=== PATIENT | female | born 1975 | race Caucasian/White ===

== ENCOUNTER 2017-12-10 12:03 | Emergency (ER) | END 2017-12-10 13:21 | disposition home or self-care (01) ==

== ENCOUNTER 2018-10-10 18:31 | Emergency (ER) | payer MEDICAID ==
[~2018-10-10] VITALS: Ht 165.1 cm; Wt 84.5 kg
[~2018-10-10 18:31] MED LIST: DOLU50TA PO; EMTR1TAB11 PO; IBUP-1542 PO; PREN-39 PO; TRAM50TA2 PO
[2018-10-10 18:45] VITALS: BP 115/61; PULSE 67; RESP 18; Ht 165.1 cm; Wt 84.5 kg
[2018-10-10] MEDS ORDERED: KETOROLAC 30 MG INJ IM STA (19:12)
[2018-10-10] MEDS ORDERED: ALBU8.5H8 INH (19:16)
[2018-10-10] MEDS ORDERED: BENZ-6 PO (19:16)
[2018-10-10] MEDS ORDERED: IBUP-1542 PO (19:16)
[2018-10-10] MEDS ORDERED: AZIT500T3 PO (19:16)
--- NOTE | 2018-10-10 19:29 | ERD ---
ER Documentation Chief Complaint Chief Complaint COUGH, CHEST CONGESTION X 1 WEEK HPI This is a 43-year-old otherwise healthy woman presenting with cough, congestion, fever x1 week. She denies recent travel or antibiotic use and denies sick contacts. She states the cough is dry nonproductive. She denies chest pain or shortness of breath, no calf or leg swelling, no headache or blurry vision, no vomiting or diarrhea, no dysuria. ROS All systems reviewed and are negative except as per history of present illness. Medications Home Meds Active Scripts Ibuprofen* (Motrin*) 600 Mg Tab, 600 MG PO Q8 PRN for PAIN AND/OR INFLAMMATION, #30 TAB Prov:IRENE BUNDY MD 10/10/18 Benzonatate* (Tessalon Perle*) 100 Mg Capsule, 100 MG PO Q8H PRN for COUGH, #12 CAP Prov:IRENE BUNDY MD 10/10/18 Albuterol Sulfate* (Proair HFA*) 8.5 Gm Hfa.aer.ad, 2 PUFF INH Q6H PRN for WHEEZING AND SOB, #1 INHALER Prov:IRENE BUNDY MD 10/10/18 Azithromycin* (Zithromax*) 500 Mg Tablet, 500 MG PO DAILY for 5 Days, TAB Prov:IRENE BUNDY MD 10/10/18 Emtricitabine-Tenofovir* (Truvada*) 200-300 Mg Tablet, 1 TAB PO DAILY for 7 Days, #30 TAB Prov:JAJA GUERRERO PA-C 12/10/17 Dolutegravir Sodium (Tivicay) 50 Mg Tablet, 50 MG PO DAILY, #30 TAB Prov:JAJA GUERRERO PA-C 12/10/17 Ibuprofen* (Motrin*) 600 Mg Tab, 600 MG PO Q6, #30 TAB Prov:PROJAJA ESPINOZA PA-C 12/10/17 Ibuprofen* (Motrin*) 600 Mg Tab, 600 MG PO Q6, #30 TAB Prov:JAJA GUERRERO PA-C 01/12/16 Tramadol HCl (Tramadol HCl) 50 Mg Tablet, 50 MG PO Q4 PRN for PAIN, #20 TAB Prov:JAJA GUERRERO PA-C 01/12/16 Reported Medications Vits W-Ca,Fe,Fa(<1MG) ( Vitamins) 1 Tab Tablet, 1 TAB PO DAILY for 7 Days 03/20/14 Allergies Allergies: Coded Allergies: No Known Allergy (Unverified , 03/20/14) PMhx/Soc None Medical and Surgical Hx: pt denies Medical Hx History of Surgery: Yes () Hx Neurological Disorder: No Hx Respiratory Disorders: No Hx Cardiac Disorders: No Hx Psychiatric Problems: No Hx Miscellaneous Medical Probl: No Hx Alcohol Use: No Hx Substance Use: No Hx Tobacco Use: No Smoking Status: Never smoker FmHx Family History: No diabetes Physical Exam Vitals Vital Signs Date Temp Pulse Resp B/P (MAP) Pulse Ox O2 O2 Flow FiO2 Time Delivery Rate 10/10/18 98.8 67 18 115/61 98 18:45 (79) Physical Exam GENERAL: Well-developed, well-nourished, well-hydrated, in no apparent distress, looks nontoxic in appearance HEENT: Moist mucous membranes, pink conjunctiva, no cervical spine tenderness or step-off deformities, no goiter, no jaundice or icterus, extraocular movements intact without pain. No submandibular induration, and no pharyngeal erythema NEURO: Alert and oriented 3, cranial nerves II through XII intact bilaterally, pupils equal round reactive to light, no focal deficits or facial asymmetry, sensation intact distally Strength 5/5 in upper and lower extremities bilaterally CARDIAC: Regular rate and rhythm, no murmurs rubs or gallops LUNGS: Clear bilaterally no wheezing crackles or stridor ABDOMEN: Soft nontender, no guarding, no rigidity, no rebound, no psoas sign no obturator sign. Normoactive bowel sounds SKIN: Warm and dry to touch, no abrasions, contusions, or hematomas, no lacerations, no ecchymosis, no target lesions, and without ulcers EXTREMITIES: No clubbing cyanosis or edema, calves are bilaterally symmetrical, no Homans sign, no popliteal cord sign. Distal pulses equal and bilateral PSYCH: Normal affect without agitation or irritability Results 24 hrs Current Medications Medications Dose Sig/Iesha Start Time Status Last (Trade) Ordered Route PRN Stop Time Admin Dose Reason Admin Ketorolac 30 mg ONCE STAT 10/10/18 DC Tromethamine IM 19:12 (Toradol) 10/10/18 19:13 Procedures/MDM I administered Toradol 30 mg IM x1 Patient lung sounds are clear and she looks well although given her 1 week of intermittent fever and cough I will prescribe oral antibiotics, albuterol, NSAIDs. Differential diagnoses considered, included but not limited to acute coronary syndrome, pulmonary embolism, aortic dissection, abdominal aortic aneurysm, sepsis, stroke, meningitis, encephalitis, pneumonia, appendicitis, cholecystitis, bowel obstruction, pyelonephritis, nephrolithiasis, cystitis, as well as metabolic, hematologic, and electrolyte abnormalities. As well as abscess, cellulitis, fractures, and dislocations. Patient feels much better at this time, and vital signs are normal, symptoms have improved. I did give strict instructions to return to the ED if symptoms continue or worsen, patient will otherwise follow-up with primary care physician. Patient understood instructions and agreed to plan. Disclaimer: Inadvertent spelling and grammatical errors are likely due to EHR/dictation software use and do not reflect on the overall quality of patient care. Also, please note that the electronic time recorded on this note does not necessarily reflect the actual time of the patient encounter. Departure Diagnosis: Primary Impression: Bronchitis Condition: Good Patient Instructions: Bronchitis, Antiobiotic Treatment (Adult) IRENE BUNDY MD October 10, 2018 19:29
== END 2018-10-10 19:42 | disposition home or self-care (01) ==
LOC: FTE 18:31
DX: J40 Bronchitis, not specified as acute or chronic (principal)
CPT/HCPCS: 81025; 96372; J1885; Z7502